=== PATIENT | female | born 1970 | race Caucasian/White ===

== ENCOUNTER 2020-10-18 09:37 | Inpatient (IN) | payer OTHER ==
[2020-10-18 10:33] VITALS: BMI 30.9
[2020-10-18] MEDS ORDERED: MENTHOL/PHENOL 1 EACH UD MM PRN (11:19)
[2020-10-18] MEDS ORDERED: ACETAMINOPHEN 325 MG TABLET (FP) PO PRN ×2 (11:19)
[2020-10-18] MEDS ORDERED: MAG HYDROX/AL HYDROX/SIMETH 30 ML UNIT-DOSE CUP PO PRN (11:19)
[2020-10-18] MEDS ORDERED: MAGNESIUM HYDROX 2400MG/30ML ORAL SUSPENSION 30 ML CUP PO PRN (11:19)
[2020-10-18] MEDS ORDERED: ONDANSETRON *ODT* 4 MG TABLET SL PRN (11:19)
[2020-10-18] MEDS ORDERED: BISMUTH SUBSALICYLATE 524 MG/30 ML UD PO PRN (11:19)
[2020-10-18] MEDS ORDERED: MAGNESIUM CITRATE 300 ML BOTTLE PO PRN (11:19)
[2020-10-18] MEDS ORDERED: METFORMIN HCL PO SCH (11:30)
[2020-10-18] MEDS ORDERED: DAPAGLIFLOZIN PO SCH (11:30)
[2020-10-18] MEDS ORDERED: PATIENT'S OWN MEDICATION (NON-FORMULARY) (Dapagliflozin Propanediol [Farxiga] 5 MG Tablet) PO SCH (11:30)
[2020-10-18] MEDS ORDERED: PATIENT'S OWN MEDICATION (NON-FORMULARY) (Dulaglutide [Trulicity] 1.5 MG/0.5 ML Pen.Injctr SQ SCH (11:30)
[2020-10-18] MEDS ORDERED: [UNRECOGNIZED DRUG - OTHER] PO SCH (11:30)
[2020-10-18] MEDS: chlordiazePOXIDE HCL 25 MG CAPSULE PO PRN (12:18)
[2020-10-18] MEDS: PRENATAL VITAMINS W/ FOLIC ACID TABLET (FP) PO SCH (12:18)
[2020-10-18] MEDS ORDERED: hydrOXYzine PAMOATE 25 MG CAPSULE (FP) PO SCH (14:00)
[2020-10-18 15:38] LABS: HIV INTERPRETATION NEGATIVE (NEGATIVE)
[2020-10-18] MEDS: chlordiazePOXIDE HCL 25 MG CAPSULE PO SCH ×2 (17:42→22:01)
[2020-10-18] MEDS: metFORMIN HCL 500 MG TABLET (FP) PO SCH (17:42)
[2020-10-18] MEDS: MELATONIN 5 MG TABLETS PO SCH (22:00)
[2020-10-18] MEDS: THIAMINE HCL 100 MG TABLET (FP) PO SCH (22:01)
[2020-10-18] MEDS: SUVOREXANT 10 MG TABLET PO PRN (22:01)
[2020-10-18] MEDS: METHOCARBAMOL 500 MG TABLET PO PRN (22:02)
[2020-10-18] MEDS: hydrOXYzine PAMOATE 25 MG CAPSULE (FP) PO PRN (22:03)
[2020-10-19] MEDS: chlordiazePOXIDE HCL 25 MG CAPSULE PO SCH ×4 (05:49→22:08)
[2020-10-19] MEDS: metFORMIN HCL 500 MG TABLET (FP) PO SCH ×2 (06:04→17:41)
[2020-10-19] MEDS: IBUPROFEN 400 MG TABLET (FP) PO PRN (10:08)
[2020-10-19] MEDS: PRENATAL VITAMINS W/ FOLIC ACID TABLET (FP) PO SCH (10:08)
[2020-10-19] MEDS: METHOCARBAMOL 500 MG TABLET PO PRN (10:10)
[2020-10-19] MEDS ORDERED: SIMETHICONE 80 MG TAB.CHEW (FP) PO PRN (11:25)
[2020-10-19] MEDS ORDERED: PNEUMOCOCCAL 23 VACCINE 0.5 ML VIAL IM ONE (12:00)
[2020-10-19] MEDS ORDERED: PNEUMOC 13-VAL CONJ-DIP CRM/PF 0.5 ML DISP.SYRIN IM ONE (12:00)
[2020-10-19] MEDS: MELATONIN 5 MG TABLETS PO SCH (22:08)
[2020-10-19] MEDS: THIAMINE HCL 100 MG TABLET (FP) PO SCH (22:08)
[2020-10-19] MEDS: SUVOREXANT 10 MG TABLET PO PRN (22:08)
[2020-10-20] MEDS: chlordiazePOXIDE HCL 25 MG CAPSULE PO PRN (02:11)
[2020-10-20] MEDS: chlordiazePOXIDE HCL 25 MG CAPSULE PO SCH ×4 (05:32→22:22)
[2020-10-20] MEDS: METHOCARBAMOL 500 MG TABLET PO PRN ×3 (05:34→23:43)
[2020-10-20] MEDS: metFORMIN HCL 500 MG TABLET (FP) PO SCH ×2 (06:02→17:42)
[2020-10-20] MEDS: PRENATAL VITAMINS W/ FOLIC ACID TABLET (FP) PO SCH (10:07)
[2020-10-20 11:45] LABS: HEMATOCRIT 36.7 % (32.4-45.2); HEMOGLOBIN 12.4 GM/dL (10.7-15.3); MCH 28.2 pg (25.7-33.7); MCHC 33.9 g/dl (32.0-36.0); MEAN CELL VOLUME 83.2 fl (80-96); MEAN PLT VOLUME 8.6 fl (7.5-11.1); PLATELET COUNT 272 K/MM3 (134-434); RDW 15.3 % (11.6-15.6)
[2020-10-20 12:00] LABS: ALBUMIN 3.5 g/dl (3.4-5.0); BILIRUBIN,TOTAL 0.4 mg/dL (0.2-1); BLOOD UREA NITROGEN 11.8 mg/dL (7-18); CALCIUM 9.3 mg/dL (8.5-10.1); TOT PROT 7.5 g/dl (6.4-8.2)
[2020-10-20 12:03] LABS: CREATININE 0.6 mg/dL (0.55-1.3)
[2020-10-20] MEDS: hydrOXYzine PAMOATE 25 MG CAPSULE (FP) PO PRN ×3 (13:38→23:43)
[2020-10-20] MEDS: MELATONIN 5 MG TABLETS PO SCH (22:22)
[2020-10-20] MEDS: THIAMINE HCL 100 MG TABLET (FP) PO SCH (22:22)
[2020-10-20] MEDS: IBUPROFEN 400 MG TABLET (FP) PO PRN (22:25)
[2020-10-21] MEDS ORDERED: chlordiazePOXIDE HCL 10 MG CAPSULE PO PRN
[2020-10-21] MEDS: chlordiazePOXIDE HCL 10 MG CAPSULE PO SCH ×3 (06:13→18:16)
[2020-10-21] MEDS: metFORMIN HCL 500 MG TABLET (FP) PO SCH ×2 (06:15→18:16)
[2020-10-21] MEDS: PRENATAL VITAMINS W/ FOLIC ACID TABLET (FP) PO SCH (10:31)
[2020-10-21] MEDS: METHOCARBAMOL 500 MG TABLET PO PRN (14:25)
[2020-10-21] MEDS: hydrOXYzine PAMOATE 25 MG CAPSULE (FP) PO PRN (14:25)
[2020-10-21 17:11] VITALS: BP 137/87; PULSE 115; TEMP 96.8
[2020-10-21] MEDS ORDERED: MIRTAZAPINE 15 MG TABLET (FP) PO SCH (22:00)
[2020-10-22] MEDS ORDERED: chlordiazePOXIDE HCL 10 MG CAPSULE PO SCH (05:00)
[2020-10-22 06:06] LABS: SARS-CoV-2 NAA Not Detected (Not Detected)
[2020-10-23] MEDS ORDERED: chlordiazePOXIDE HCL 10 MG CAPSULE PO ONE (05:00)
== END 2020-10-21 18:05 | disposition home or self-care (01) | DRG 775 ==
LOC: YASAS 09:37 → Y3N 10:51
PROVIDERS: ADMIT Allergy & Immunology; ATTEND Allergy & Immunology
PROC: HZ2ZZZZ Detoxification Services for Substance Abuse Treatment (ICD-10-PCS; principal; 2020-10-18)
DX: F10.230 Alcohol dependence with withdrawal, uncomplicated (principal); F10.282 Alcohol dependence with alcohol-induced sleep disorder; F10.24 Alcohol dependence with alcohol-induced mood disorder; F33.1 Major depressive disorder, recurrent, moderate; F31.9 Bipolar disorder, unspecified; E11.9 Type 2 diabetes mellitus without complications; Z79.84 Long term (current) use of oral hypoglycemic drugs; Z62.810 Personal history of physical and sexual abuse in childhood; Z91.410 Personal history of adult physical and sexual abuse; Z91.5 Personal history of self-harm; Z98.890 Other specified postprocedural states
CPT/HCPCS: 36415; 80053; 81025; 82962; 85027; 86780; 87389; 90732; 93005; 93010; C9803; G0009; U0003; U0005